=== PATIENT | male | born 1960 | race African-American/Black ===

== ENCOUNTER 2021-04-10 01:25 | Observation (INO) ==
[2021-04-10] MEDS ORDERED: ONDANSETRON 4 MG/2 ML VIAL IV STA (02:19)
[2021-04-10] MEDS ORDERED: HYDROmorphone 2 MG/1 ML VIAL IV STA (02:19)
[2021-04-10] MEDS ORDERED: SODIUM CHLORIDE 0.9% 500 ML IV STA (02:19)
[2021-04-10] MEDS ORDERED: PANTOPRAZOLE 40 MG VIAL IV STA (02:19)
[2021-04-10 03:25] LABS: Basophils # 0.1 10*3/uL (0.0-0.2); Basophils % 0.7 % (0.0-0.8); Eosinophils # 0.1 10*3/uL (0.0-0.87); Eosinophils % 0.8 % (0.00-10.9); Hemoglobin 8.5 GM/DL (14.0-18.0); Immature Granulocytes % 0.7 %; Immature Granulocytes Absolute 0.09 #; Lymphocytes # 1.1 10*3/uL (1.4-4.0); Lymphocytes % 8.2 % (21.2-54.2); Mean Corpuscular HGB Conc 30.4 GM/DL (32-36); Mean Corpuscular Volume 88.6 FL (87-102); Mean Platelet Volume 9.8 FL (9.6-12.0); Monocytes % 8.5 % (1.7-12.7); Neutrophils % 81.1 % (38.7-73.9); Platelet Count 567 T/CUMM (130-400); Red Blood Count 3.16 MC/CUMM (3.8-5.5); Red Cell Distribution Width 19.8 % (9.3-17.3); White Blood Count 13.6 T/CUMM (4-12)
[2021-04-10 03:49] LABS: Albumin 3.5 G/DL (3.4-5.0); Bilirubin,Total 0.5 MG/DL (0.20-1.00); Calcium 9.5 MG/DL (8.5-10.1); Osmolality,Calculated 285.2 MOS/KG (273-304); Total Protein 7.8 G/DL (6.4-8.2)
[2021-04-10 04:18] LABS: Bilirubin,Urine Negative (Negative); Blood, Urine Negative (Negative); Glucose,Urine (UA) >=500 mg/dL (Negative); Ketones,Urine Negative (Negative); Mucus,Urine Occasional /LPF (Occasional); Nitrite,Urine Negative (Negative); Protein,Urine Negative; RBC,Urine 3 /HPF (0-4); Squamous Epithelial Cell,Urine Occasional /HPF (0-10); Urine Appearance CLEAR (Clear); Urine Color Yellow (Yellow); Urine Specific Gravity 1.026 (1.001-1.035); Urine Urobilinogen < 2.0 EU/DL (<2.0)
[2021-04-10] MEDS ORDERED: ONDANSETRON 4 MG/2 ML VIAL IV PRN (05:01)
[2021-04-10] MEDS ORDERED: POTASSIUM CHLORIDE RIDER 10 MEQ/100 ML PREMIX IV PRN (05:01)
[2021-04-10] MEDS ORDERED: GLUCAGON 1 MG VIAL IM PRN (05:01)
[2021-04-10] MEDS ORDERED: SIMETHICONE CHEW 125 MG TABLET PO PRN (05:01)
[2021-04-10] MEDS ORDERED: MAGNESIUM SULF RIDER 2 GM/50 ML PREMIX IV PRN (05:01)
[2021-04-10] MEDS ORDERED: hydrALAZINE 20 MG/1 ML VIAL IV PRN (05:01)
[2021-04-10] MEDS ORDERED: POTASSIUM CHLORIDE 20 MEQ TABLET PO PRN (05:01)
[2021-04-10] MEDS ORDERED: ACETAMINOPHEN 325 MG TABLET PO PRN (05:01)
[2021-04-10] MEDS ORDERED: DEXTROSE 50% 25 GM/50 ML SYRINGE IV PRN (05:01)
[2021-04-10] MEDS ORDERED: MAGNESIUM SULF RIDER 4 GM/100 ML PREMIX IV PRN (05:01)
[2021-04-10] MEDS ORDERED: ENOXAPARIN 40 MG/0.4 ML SYRINGE SUBCUT SCH (05:30)
[2021-04-10] MEDS: SODIUM CHLORIDE 0.9% 1,000 ML IV SCH ×2 (06:31→12:56)
[2021-04-10 06:43] LABS: INR 1.1; PT Patient Result 11.9 SECS (10.5-12.0); Partial Thromboplastin Time 24.8 SECS (23.8-32.1)
[2021-04-10 06:59] LABS: Basophils # 0.1 10*3/uL (0.0-0.2); Basophils % 0.6 % (0.0-0.8); Eosinophils # 0.1 10*3/uL (0.0-0.87); Eosinophils % 0.8 % (0.00-10.9); Hematocrit 27.4 VOL% (42.0-52.0); Hemoglobin 8.4 GM/DL (14.0-18.0); Immature Granulocytes % 0.7 %; Lymphocytes # 1.2 10*3/uL (1.4-4.0); Lymphocytes % 8.3 % (21.2-54.2); Mean Corpuscular HGB Conc 30.7 GM/DL (32-36); Mean Corpuscular Volume 88.4 FL (87-102); Mean Platelet Volume 10.9 FL (9.6-12.0); Monocytes % 8.9 % (1.7-12.7); NRBC # 0.02 10*3/uL; Neutrophils % 80.7 % (38.7-73.9); Platelet Count 550 T/CUMM (130-400); Red Cell Distribution Width 21.3 % (9.3-17.3); White Blood Count 14.2 T/CUMM (4-12)
[2021-04-10 07:18] LABS: % Iron Saturation 14.9 % (18-50)
[2021-04-10] MEDS: metroNIDAZOLE INJ 500 MG/100 ML PREMIX IV SCH ×3 (07:19→23:13)
[2021-04-10] MEDS: HYDROmorphone 2 MG/1 ML VIAL IV PRN (07:30)
[2021-04-10 08:12] LABS: Sedimentation Rate-Westergren 96 MM/HR (0-20)
[2021-04-10] MEDS: INSULIN REGULAR 100 UNIT/ML SUBCUT SCH ×4 (08:14→23:07)
[2021-04-10] MEDS: CIPROFLOXACIN INJ 400 MG/200 ML PREMIX IV SCH (08:14)
[2021-04-10 08:17] LABS: Folate > 24.00 NG/ML (5.38-24.0); Vitamin B12 864 PG/ML (211-911)
[2021-04-10] MEDS: ASPIRIN EC 81 MG TABLET PO SCH (09:42)
[2021-04-10] MEDS: PANTOPRAZOLE 40 MG VIAL IV SCH (09:42)
[2021-04-10] MEDS: DOCUSATE SODIUM 100 MG CAPSULE PO SCH ×2 (09:42→23:13)
[2021-04-10] MEDS: BISACODYL 5 MG TABLET PO SCH ×4 (09:43→23:06)
[2021-04-10 10:09] LABS: Hemoglobin A1 (Alkaline) 97.9 % (96.5-98.5); Hemoglobin A2 (Alkaline) 2.1 % (1.5-3.5)
[2021-04-10 15:38] LABS: Hepatitis B Core IgM Quant 0.19 Index; Hepatitis B Surface Ag Quant < 0.10 Index; Hepatitis B Surface Ag Result Non-Reactive (NonReactive); Hepatitis C Virus Ab Quant 0.76 Index; Hepatitis C Virus Ab Result Non-Reactive (NonReactive)
[2021-04-10] MEDS: SKIN HEALING OINT (AQUAPHOR) 50 GM TUBE TOP SCH (17:05)
[2021-04-10] MEDS: SILVER SULFADIAZINE 1% CREAM 25 GM TUBE TOP SCH (17:05)
[2021-04-10] MEDS ORDERED: POLYETHYLENE GLYCOL POWDER 255 GM BOTTLE PO ONE (18:00)
[2021-04-10] MEDS: METOCLOPRAMIDE 10 MG/2 ML VIAL IV SCH (18:18)
[2021-04-10] MEDS ORDERED: MAGNESIUM CITRATE 300 ML BOTTLE PO ONE (21:00)
[2021-04-11] MEDS: CIPROFLOXACIN INJ 400 MG/200 ML PREMIX IV SCH ×3 (00:58→21:35)
[2021-04-11] MEDS: SODIUM CHLORIDE 0.9% 1,000 ML IV SCH ×3 (00:59→14:46)
[2021-04-11] MEDS: METOCLOPRAMIDE 10 MG/2 ML VIAL IV SCH ×5 (00:59→23:35)
[2021-04-11] MEDS: BISACODYL 5 MG TABLET PO SCH ×2 (02:28→04:11)
[2021-04-11] MEDS ORDERED: ZALEPLON 5 MG CAPSULE PO PRN (02:49)
[2021-04-11 06:07] LABS: Basophils # 0.1 10*3/uL (0.0-0.2); Basophils % 0.6 % (0.0-0.8); Eosinophils # 0.1 10*3/uL (0.0-0.87); Eosinophils % 0.8 % (0.00-10.9); Hematocrit 27.8 VOL% (42.0-52.0); Hemoglobin 8.2 GM/DL (14.0-18.0); Immature Granulocytes % 0.8 %; Immature Granulocytes Absolute 0.09 #; Lymphocytes # 1.3 10*3/uL (1.4-4.0); Lymphocytes % 10.9 % (21.2-54.2); Mean Corpuscular HGB Conc 29.5 GM/DL (32-36); Mean Corpuscular Volume 89.4 FL (87-102); Mean Platelet Volume 9.4 FL (9.6-12.0); Monocytes % 9.7 % (1.7-12.7); Neutrophils % 77.2 % (38.7-73.9); Platelet Count 570 T/CUMM (130-400); Red Blood Count 3.11 MC/CUMM (3.8-5.5); Red Cell Distribution Width 19.8 % (9.3-17.3)
[2021-04-11] MEDS: metroNIDAZOLE INJ 500 MG/100 ML PREMIX IV SCH ×3 (06:32→23:40)
[2021-04-11 06:43] LABS: Albumin 3.2 G/DL (3.4-5.0); Bilirubin,Total 0.9 MG/DL (0.20-1.00); Osmolality,Calculated 277.1 MOS/KG (273-304); Thyroid Stimulating Hormone 0.945 uIU/ml (0.358-3.74); Total Protein 7.8 G/DL (6.4-8.2)
[2021-04-11] MEDS: INSULIN REGULAR 100 UNIT/ML SUBCUT SCH ×4 (07:30→21:49)
[2021-04-11] MEDS ORDERED: LIDOCAINE 2% 5 ML VIAL ONE (08:01)
[2021-04-11] MEDS ORDERED: propofoL 200 MG/20 ML VIAL IV ONE ×5 (08:01→08:51)
[2021-04-11] MEDS: POLYETHYLENE GLYCOL POWDER 17 GM PACK PO SCH ×2 (10:19→21:37)
[2021-04-11] MEDS: LINACLOTIDE 145 MCG CAPSULE PO SCH (10:19)
[2021-04-11] MEDS: DOCUSATE SODIUM 100 MG CAPSULE PO SCH ×2 (10:20→21:36)
[2021-04-11] MEDS: PANTOPRAZOLE 40 MG VIAL IV SCH ×2 (10:20→21:41)
[2021-04-11] MEDS: ASPIRIN EC 81 MG TABLET PO SCH (10:20)
[2021-04-11] MEDS: SKIN HEALING OINT (AQUAPHOR) 50 GM TUBE TOP SCH (10:44)
[2021-04-11] MEDS: SILVER SULFADIAZINE 1% CREAM 25 GM TUBE TOP SCH (10:44)
[2021-04-12 05:37] LABS: Basophils # 0.1 10*3/uL (0.0-0.2); Eosinophils # 0.1 10*3/uL (0.0-0.87); Hematocrit 28.1 VOL% (42.0-52.0); Hemoglobin 8.5 GM/DL (14.0-18.0); Immature Granulocytes % 0.9 %; Immature Granulocytes Absolute 0.09 #; Lymphocytes # 1.2 10*3/uL (1.4-4.0); Lymphocytes % 10.9 % (21.2-54.2); Mean Corpuscular HGB Conc 30.2 GM/DL (32-36); Mean Corpuscular Volume 88.6 FL (87-102); Mean Platelet Volume 9.3 FL (9.6-12.0); Monocytes % 10.9 % (1.7-12.7); Neutrophils % 75.3 % (38.7-73.9); Platelet Count 531 T/CUMM (130-400); Red Blood Count 3.17 MC/CUMM (3.8-5.5); Red Cell Distribution Width 19.4 % (9.3-17.3); White Blood Count 10.6 T/CUMM (4-12)
[2021-04-12 05:56] LABS: Calcium 9.2 MG/DL (8.5-10.1); Osmolality,Calculated 276.1 MOS/KG (273-304); Potassium 3.9 MMOL/L (3.5-5.1)
[2021-04-12] MEDS: METOCLOPRAMIDE 10 MG/2 ML VIAL IV SCH ×2 (06:15→14:21)
[2021-04-12] MEDS: metroNIDAZOLE INJ 500 MG/100 ML PREMIX IV SCH ×2 (06:25→14:59)
[2021-04-12] MEDS ORDERED: LIDOCAINE 2% 5 ML VIAL ONE (07:59)
[2021-04-12] MEDS ORDERED: propofoL 200 MG/20 ML VIAL IV ONE ×4 (07:59→08:14)
[2021-04-12 08:47] VITALS: BP 152/85
[2021-04-12] MEDS: POLYETHYLENE GLYCOL POWDER 17 GM PACK PO SCH (09:16)
[2021-04-12] MEDS: CIPROFLOXACIN INJ 400 MG/200 ML PREMIX IV SCH (09:25)
[2021-04-12] MEDS: PANTOPRAZOLE 40 MG VIAL IV SCH (09:26)
[2021-04-12] MEDS: LINACLOTIDE 145 MCG CAPSULE PO SCH (09:26)
[2021-04-12] MEDS: INSULIN REGULAR 100 UNIT/ML SUBCUT SCH ×2 (09:27→14:21)
[2021-04-12] MEDS: DOCUSATE SODIUM 100 MG CAPSULE PO SCH (09:27)
[2021-04-12] MEDS: ASPIRIN EC 81 MG TABLET PO SCH (09:27)
[2021-04-12] MEDS: SILVER SULFADIAZINE 1% CREAM 25 GM TUBE TOP SCH (09:28)
[2021-04-12] MEDS: SKIN HEALING OINT (AQUAPHOR) 50 GM TUBE TOP SCH (09:28)
[2021-04-12] MEDS: HYDROmorphone 2 MG/1 ML VIAL IV PRN (09:35)
== END 2021-04-12 14:58 | disposition home or self-care (01) ==
LOC: N.ED 01:25 → N.EDINP 01:25 → N.5E 10:22
PROVIDERS: ADMIT Internal Medicine; ATTEND Internal Medicine